=== PATIENT | female | born 1975 | race Caucasian/White ===

== ENCOUNTER 2021-01-18 06:32 | Day surgery (SDC) | payer SELFPAY ==
[2021-01-10 17:10] VITALS: BMI 20.5
[2021-01-18] MEDS ORDERED: ceFAZolin SODIUM 1 GM VIAL ONE ×2 (07:32→08:06)
[2021-01-18] MEDS ORDERED: GENTAMICIN SO4 80 MG/2 ML VIAL ONE (07:32)
[2021-01-18] MEDS ORDERED: BUPIVACAINE HCL/PF 2.5 MG/ML - 30 ML VIAL IJ ONE (07:33)
[2021-01-18] MEDS ORDERED: LIDOCAINE 1%/EPI 1:100000 (20 ML MULTI DOSE VIAL) ONE (07:33)
[2021-01-18] MEDS ORDERED: SCOPOLAMINE HYDROBROMIDE 1 PATCH PATCH.TD72 ONE (08:02)
[2021-01-18] MEDS ORDERED: fentaNYL CITRATE 250 MCG/5 ML VIAL ONE (08:06)
[2021-01-18] MEDS ORDERED: ONDANSETRON 4 MG/2 ML VIAL ONE (08:06)
[2021-01-18] MEDS ORDERED: KETOROLAC TROMETHAMINE 30 MG/1 ML VIAL ONE (08:06)
[2021-01-18] MEDS ORDERED: DEXAMETHASONE SOD PHOSPHATE 4 MG/1 ML VIAL ONE (08:06)
[2021-01-18] MEDS ORDERED: LIDOCAINE HCL 2% JELLY (5 ML/TUBE) ONE (08:06)
[2021-01-18] MEDS ORDERED: PROPOFOL 20 ML ONE ×4 (08:06)
[2021-01-18] MEDS ORDERED: ROCURONIUM BROMIDE 50 MG/5 ML SYRINGE ONE (08:07)
[2021-01-18] MEDS ORDERED: SUCCINYLCHOLINE CHLORIDE 200 MG/10 ML SYRINGE ONE (08:07)
[2021-01-18] MEDS ORDERED: MIDAZOLAM HCL 2 MG/2 ML SINGLE DOSE VIAL ONE (08:07)
[2021-01-18] MEDS ORDERED: SEVOFLURANE 250 ML BTL ONE (09:36)
[2021-01-18] MEDS ORDERED: BENZOIN 118 ML SPRAY.PUMP TP ONE (11:01)
[2021-01-18] MEDS ORDERED: PROMETHAZINE HCL 25 MG/1 ML VIAL IVPUSH PRN (12:07)
[2021-01-18] MEDS ORDERED: oxyCODONE HCL 5 MG TABLET PO PRN ×2 (12:07)
[2021-01-18] MEDS ORDERED: ONDANSETRON 4 MG/2 ML VIAL IVPUSH PRN (12:07)
[2021-01-18 13:16] VITALS: PULSE 61
[2021-01-18 15:03] VITALS: BP 100/62; TEMP 97
== END 2021-01-18 14:07 | disposition home or self-care (01) ==
LOC: FASU 06:32
PROVIDERS: ATTEND Surgery
CPT/HCPCS: 81025; 94760